=== PATIENT | female | born 1995 | race Caucasian/White ===

== ENCOUNTER 2017-08-15 23:59 | Observation (INO) ==
[2017-08-16 01:11] LABS: Bilirubin,Urine Negative (Negative); Blood,Urine Negative (Negative); Clarity,Urine Cloudy (Clear); Color,Urine Yellow (Yellow); Glucose,Urine (UA) Normal (Normal); Ketones,Urine Negative (Negative); Leukocyte Esterase,Urine Moderate (Negative); Nitrite,Urine Negative (Negative); Protein,Urine Negative (Neg-Trace); Specific Gravity,Urine 1.012 (1.010-1.025); Urobilinogen,Urine Normal (Normal)
[2017-08-16] MEDS ORDERED: Lidocaine -MPF 1% 2 ML VIAL ONE (01:11)
[2017-08-16 01:15] LABS: Hyaline Casts,Urine None Seen per lpf (None-Few); RBC,Urine 0-3 per hpf (0-3); Squamous Epithelial Cell,Urine Many per lpf (None-Few)
[2017-08-16 01:17] LABS: Amphetamine Screen,Urine Negative ng/mL (Cutoff=1000); Barbiturate Screen,Urine Negative ng/mL (Cutoff=200); Benzodiazepines Screen,Urine Negative ng/mL (Cutoff=200); Cannabinoid Screen,Urine Negative ng/mL (Cutoff = 50); Cocaine Screen,Urine Negative ng/mL (Cutoff= 300); Opiate Screen,Urine Negative ng/mL (Cutoff=300); Phencyclidine Screen,Urine Negative ng/mL (Cutoff=25)
[2017-08-16 01:27] LABS: Bacteria,Urine Moderate per hpf (None-Few)
--- NOTE | 2017-08-16 02:32 | OB/GYN Progress Note ---
Date of Encounter: 08/16/17 Time of Encounter: 02:19 - Assessment and Plan (1) Elevated blood pressure affecting in third trimester, antepartum Current Visit: Yes Status: Acute Bp on admission 131/101, then 142/99 currently 133/89. [facility] labs obtained. Discussed with Dr. Arline lawson to discharge to home, but schedule an appointment for Sunday. Message sent to chief crew scheduler in office to schedule patient for NST and PN appointment. Pt and mother state they are unsure if they will be able to make appoinement. RN will send email to [place], to call patient and discuss gas vouchers. (2) Abdominal pain affecting , antepartum Current Visit: Yes Status: Acute Pt rare contractions asked if she felt the contraction when one was occurring and stated she did not feel it. Cervix remained 60/-3 on serial exams. Discharged to home with labor and when to return precautions Pt and mother verbalize understanding Subjective - Subjective Interval history: 34+0 weeks presents to triage with abdominal pain and pelvic pressure that started at 2130 last night. Pt also complaints of right sided abdominal pain and skin sensitivity. Reports good movement, denies vaginal bleeding or leaking of fluid. Denies headache, visual changes, dysuria. Antepartum ROS: movement normal, other (adominal pain ), no loss of fluid , no vaginal bleeding, no contractions Objective - Vital Signs Vital Signs: Intake and Output 08/15/17 08/15/17 08/16/17 15:59 23:59 07:59 Other: Weight 84.2 kg Patient Weight 08/16/17 23:59 Weight 84.2 kg - Exam FHR: auscultation normal Auscultation: bilateral: normal Abdomen: Present: normal appearance, soft, gravid Cervical dilation: - Labs Labs: Abnormal lab results Urine Clarity Cloudy (Clear) A 08/16/17 00:30 Ur Leukocyte Esterase Moderate (Negative) H 08/16/17 00:30 Urine Microscopic WBC 3-5 per hpf (0-3) H 08/16/17 00:30 Ur Squamous Epith Cells Many per lpf (None-Few) H 08/16/17 00:30 Urine Bacteria Moderate per hpf (None-Few) H 08/16/17 00:30 Ur Culture Indicated? YES (NO) A 08/16/17 00:30
[2017-08-16 02:36] LABS: Basophils % 0.2 %; Eosinophils # 0.1 K/mcL (0.0-0.6); Eosinophils % 0.6 %; Hematocrit 31.5 % (35.3-44.9); Hemoglobin 10.5 g/dL (11.5-15.4); Immature Granulocytes % 0.5 % (0-4); Immature Platelets 3.5 % (1.1-6.1); Lymphocytes # 2.1 K/mcL (0.6-4.6); Mean Corpuscular HGB Conc 33.3 g/dL (31.6-35.5); Mean Corpuscular Hemoglobin 30.4 pg (28.0-33.3); Mean Corpuscular Volume 91.3 fL (83.0-100.0); Monocytes # 0.7 K/mcL (0.0-1.3); Monocytes % 6.1 %; Neutrophils # 9.3 K/mcL (1.6-8.9); Platelet Count 256 K/mcL (140-400); Red Blood Count 3.45 M/mcL (3.82-4.97); Red Cell Distribution Width 13.6 % (11.5-14.5); Segmented Neutrophils % 75.6 %
[2017-08-16 02:50] LABS: Alanine Aminotransferase 6 Units/L (0-55); Aspartate Amino Transferase 9 Units/L (5-34); BUN/Creatinine Ratio 12 (6-26); Blood Urea Nitrogen 7 mg/dL (7-20); Lactate Dehydrogenase 126 Units/L (159-327); Uric Acid 4.2 mg/dL (2.6-6.0); eGFR For African Americans > 60 (> 60); eGFR For Non-African Americans > 60 (> 60)
== END 2017-08-16 03:49 | disposition home or self-care (01) ==
LOC: 1NENULAB
PROVIDERS: ADMIT Advanced Practice Midwife; ATTEND Advanced Practice Midwife

== ENCOUNTER 2017-08-27 23:12 | Inpatient (IN) ==
[2017-08-27 23:48] LABS: Bilirubin,Urine Negative (Negative); Blood,Urine Large (Negative); Clarity,Urine Cloudy (Clear); Color,Urine Yellow (Yellow); Glucose,Urine (UA) Normal (Normal); Ketones,Urine >=160 mg/dL (Negative); Leukocyte Esterase,Urine Large (Negative); Nitrite,Urine Negative (Negative); PH,Urine 6.5 pH Units (5.0-8.0); Protein,Urine Trace mg/dL (Neg-Trace); Specific Gravity,Urine 1.022 (1.010-1.025); Urobilinogen,Urine Normal (Normal)
[2017-08-27 23:52] LABS: Amphetamine Screen,Urine Negative ng/mL (Cutoff=1000); Bacteria,Urine Many per hpf (None-Few); Barbiturate Screen,Urine Negative ng/mL (Cutoff=200); Benzodiazepines Screen,Urine Negative ng/mL (Cutoff=200); Cannabinoid Screen,Urine Negative ng/mL (Cutoff = 50); Cocaine Screen,Urine Negative ng/mL (Cutoff= 300); Hyaline Casts,Urine None Seen per lpf (None-Few); Opiate Screen,Urine Negative ng/mL (Cutoff=300); Phencyclidine Screen,Urine Negative ng/mL (Cutoff=25); Squamous Epithelial Cell,Urine Many per lpf (None-Few); WBC,Urine TNTC per hpf (0-3)
--- NOTE | 2017-08-28 00:01 | OB/GYN Progress Note ---
Date of Encounter: 08/28/17 Time of Encounter: 23:50 - Assessment and Plan (1) 35 weeks gestation of Current Visit: Yes Status: Acute at 35 4/7 EGA Failed 1 hr OGTT, unable to obtain 3 hr OGTT (2) Abdominal pain affecting , antepartum Current Visit: No Status: Acute Reports intermittent, sharp lower abdominal pain No dysuria or CVA tenderness UA shows leuk esterase, ketones, blood - culture indicated Ancef 2g Q8H (3) labor in third trimester Current Visit: Yes Status: Acute Due to patient being late , steroids are not indicated Patient has been making slow cervical change overnight (currently /), but will not be admitted for labor untill 6 cm dilated or SROM. Pain is not well controlled, have given her nubain and fentanyl which have not touched patient's pain Ancef 200mg IV q8 hours for UTI, draw CBC. Consider IM morphine and phenergan. POC per consult with Dr Barker. Qualifiers: labor delivery status: without delivery Qualified Code(s): O60.03 - labor without delivery, third trimester Subjective - Subjective Principal diagnosis: Abdominal pain Interval history: Ms. Saavedra is a 22 year old female at 35 4/7 EGA presenting with concerns of lower abdominal pain and some blood on the toilet paper after urinating. Her abdominal pain began this morning around 6AM, and she describes it as intermittent and sharp. She states that nothing makes it better. Worse with movement. She denies dysuria, hematuria, loss of fluid, or vaginal discharge. No overt vaginal bleeding other than a small amount after she wipes. She reports movement. Admits to some nausea and some lower back pain. Denies fevers, chills, blurred vision, headaches, chest pain, dysnea, vomiting, change in bowels, or extremity edema. This has been complicated by a failed 1 hr OGTT, but no conformation of GDM on 3 hr OGTT. Antepartum ROS: new complaints, movement normal, no loss of fluid, no vaginal bleeding, no contractions Objective - Vital Signs Vital Signs: Intake and Output 08/27/17 08/27/17 08/27/17 07:59 15:59 23:59 Other: Weight 83.007 kg Patient Weight 08/27/17 23:59 Weight 83.007 kg - Exam FHR: category 1 FHR comments: Level Green: irregular Auscultation: bilateral: normal Abdomen: Present: normal appearance, soft, gravid, tenderness (suprapubic) Uterus: Present: normal, firm Cervical dilation: 1-2cm per RN Cervix effacement: 80 station: 0
[2017-08-28] MEDS ORDERED: *HR* Nalbuphine 20 MG/ML AMPUL IVP PRN (01:04)
[2017-08-28] MEDS ORDERED: Ringers Solution, Lactated 1,000 ML IVC ONE (01:04)
[2017-08-28] MEDS ORDERED: ceFAZolin 2,000 MG in Water for inj. (sterile) 20 ML IVP SCH (02:00)
[2017-08-28] MEDS: Ringers Solution, Lactated 1,000 ML IVC SCH ×3 (02:47→19:48)
[2017-08-28] MEDS ORDERED: *HR* FentaNYL (PF) 100 MCG/2 ML VIAL IVP ONE (04:43)
[2017-08-28] MEDS ORDERED: *HR* Morphine 2 MG/ML SYRINGE SQ ONE (07:13)
[2017-08-28] MEDS ORDERED: *HR* Promethazine 25 MG/ML VIAL IM ONE (07:13)
[2017-08-28] MEDS ORDERED: *HR* Morphine 10 MG/ML VIAL ONE (08:03)
[2017-08-28 09:29] LABS: Basophils % 0.2 %; Hematocrit 33.5 % (35.3-44.9); Hemoglobin 10.9 g/dL (11.5-15.4); Immature Granulocytes % 0.9 % (0-4); Lymphocytes # 0.9 K/mcL (0.6-4.6); Lymphocytes % 4.1 %; Mean Corpuscular HGB Conc 32.5 g/dL (31.6-35.5); Mean Corpuscular Hemoglobin 29.3 pg (28.0-33.3); Mean Corpuscular Volume 90.1 fL (83.0-100.0); Mean Platelet Volume 10.1 fL (9.4-12.4); Monocytes # 1.1 K/mcL (0.0-1.3); Monocytes % 4.6 %; Neutrophils # 20.6 K/mcL (1.6-8.9); Platelet Count 192 K/mcL (140-400); Red Blood Count 3.72 M/mcL (3.82-4.97); Red Cell Distribution Width 14.1 % (11.5-14.5); Segmented Neutrophils % 90.2 %
[2017-08-28 09:39] LABS: Basophils # 0.1 K/mcL (0.0-0.2)
[2017-08-28] MEDS ORDERED: Penicillin G Potassium 5,000,000 UNIT in D5% in Water 100 ML IVPB ONE (10:47)
--- NOTE | 2017-08-28 10:56 | OB/GYN History & Physical ---
Date of Encounter: 08/28/17 Time of Encounter: 10:48 Assessment and Plan (1) 35 weeks gestation of Current visit: Yes Status: Acute admitted for labor observation Admit for delivery at 6cm or SROM GBS Unknown- will start PCN prophylaxis History of Present Illness Chief complaint: vaginal bleeding and contractions HPI: Ms. Saavedra is a 22 year old female at 35w5d presents to labor and delivery yesterday with complaints of vaginal bleeding and cramping. Patient was 1-2 cm on admission and progressed slowly to -. It was also discovered patient had a UTI and was treated with Ancef 2 grams Q8 hours. Patient reports pain . Patient reexamined at this time. Large amount of bloody show noted. SVE . We will continue to monitor patient at this time. Discussed POC with patient. Patient denies any questions or concerns. Ancef to be stopped at this time and will start GBS prophylaxis to be started due to unknown GBS status. Blood type: O+, Rubella: Immune, Hep B: Nonreactive, Varicella: Equivocal, GBS: Unknown. Past Med Surg Social Fam HX - Past Medical History Source: patient Medical history: asthma Psychiatric history: depression - Past Surgical History Surgical History: no surgical history - Social History Smoking Status: Never smoker Smokeless Tobacco Status: No Alcohol use: none Drug use: none Activity Level: Independent ambulation Recent Out of Country Travel Within the Last 8 Weeks: No Exposure or Possible Exposure to Illness During Travel: No - Family History Mother Living Status: Still Living Hx Family Cardiac Disorders: Yes (HTN, high cholesterol) Hx Family Respiratory Disorders: No Hx Family Cancer: No Hx Family GI Disorders: No Hx Family Genitourinary Disorders: No Hx Family Endocrine Disorder: No Hx Family Musculoskeletal Disorders: No Hx Family Neuromuscular Disorders: No Hx Family Neurologic Disorders: No Hx Family HEENT Disorders: No Hx Family Autoimmune Disorders: No Hx Family Reproductive Disorders: No Hx Family Psychosocial Disorders: No Hx Family Medical Disorders: No Obstetrical History - Pregnancies : 1 Para: 0 Term: 0 : 0 Ab's: 0 Livin Medications and Allergies No Known Home Drugs 08/27/17 [History] 3 Allergy/AdvReac Type Severity Reaction Status Date / Time naproxen AdvReac Headache Verified 08/16/17 01:17 Review of System OB - Constitutional Constitutional ROS IM: no fever(s), no headache(s) - Cardiovascular Cardiovascular: no chest pain, no palpitations, no syncope - Respiratory Respiratory: no cough, no dyspnea - Gastrointestinal Gastrointestinal: abdominal pain, cramping, no constipation, no heartburn, no nausea, no vomiting - Genitourinary Genitourinary: abnormal vaginal bleeding (per HPI), dysuria, flank pain, vaginal discharge, no urinary frequency, no urinary incontinence, no vaginal odor, no vaginal pruritis Exam - Constitutional Constitutional: well developed, well nourished, no acute distress, average body habitus - HEENT HEENT: Normocephaly, Mucus Membranes Moist - Neck Neck exam: full ROM, supple - Lungs Respiratory exam: CTAB - Cardiovascular Cardiovascular exam: RRR, +S1, +S2 - Abdomen Abdomen: Present: bowel sounds normal, gravid, non tender - Extremities Extremities exam: full ROM, normal inspection Deep Tendon Reflex Grade: 2+ Normal - Cervix Dilation: 5 Effacement: 90 Station: -1 - Uterus Uterus exam: Present: normal size, normal contour - Anus/Rectum Anus/Rectum: Present: normal perianal skin - Comments Comments: FHR 135 bpm moderate amount variability +15x15 accels no decels noted. No contractions noted at this time. Cat. 1 Tracing. Results Result Diagrams: 08/28/17 09:15 Abnormal lab results WBC 22.8 K/mcL (4.3-11.1) H 08/28/17 09:15 RBC 3.72 M/mcL (3.82-4.97) L 08/28/17 09:15 Hgb 10.9 g/dL (11.5-15.4) L 08/28/17 09:15 Hct 33.5 % (35.3-44.9) L 08/28/17 09:15 Neutrophils # 20.6 K/mcL (1.6-8.9) H 08/28/17 09:15 Urine Clarity Cloudy (Clear) A 08/27/17 23:38 Urine Ketones >=160 mg/dL (Negative) H 08/27/17 23:38 Urine Blood Large (Negative) H 08/27/17 23:38 Ur Leukocyte Esterase Large (Negative) H 08/27/17 23:38 Urine Microscopic RBC 5-15 per hpf (0-3) H 08/27/17 23:38 Urine Microscopic WBC TNTC per hpf (0-3) H 08/27/17 23:38 Ur Squamous Epith Cells Many per lpf (None-Few) H 08/27/17 23:38 Urine Bacteria Many per hpf (None-Few) H 08/27/17 23:38 Ur Culture Indicated? YES (NO) A 08/27/17 23:38 All other labs normal. - VTE Reasons for not Prescribing Prophylaxis: Treatment not Indicated - Low risk for VTE
[2017-08-28] MEDS ORDERED: Ondansetron 4 MG/2 ML VIAL IVP PRN (11:55)
[2017-08-28] MEDS ORDERED: Naloxone 0.4 MG/ML INJ IVP PRN (11:55)
[2017-08-28] MEDS ORDERED: Famotidine 20 MG/2 ML VIAL IVP PRN (11:55)
[2017-08-28] MEDS ORDERED: Ringers Solution, Lactated 1,000 ML IVC SCH (12:00)
[2017-08-28] MEDS ORDERED: Epidural Premix (fent/bupiv) 110 ML EP ONE ×2 (12:03→18:17)
[2017-08-28] MEDS ORDERED: *HR* FentaNYL (PF) 100 MCG/2 ML VIAL ONE ×3 (12:03→22:02)
[2017-08-28] MEDS ORDERED: *HR* Ropivacaine/PF 0.2% 10 ML AMPUL ONE ×2 (12:03→19:54)
--- NOTE | 2017-08-28 12:14 | Anesthesia Evaluation PreOp ---
Date of Encounter: 08/28/17 Time of Encounter: 12:11 - Past History Planned Operation: reema Cardiac History: Denies any Significant Hx Pulmonary History: Asthma DENTURE CONTOUR WIRE SPECIALIST History: Denies Any Significant HX Other Medical History: Denies Any Significant HX, Other (depression) Anesthesia History: No Prior Anesthetic Complications : Yes Test: Positive Alcohol Use: none Drug use: none Medications and Allergies No Known Home Drugs 08/27/17 [History] 3 Allergy/AdvReac Type Severity Reaction Status Date / Time naproxen AdvReac Headache Verified 08/16/17 01:17 - Meds/Allergy Pre-op Review Medications Reviewed: Yes Allergies Reviewed: Yes Beta Blockers on Current Med List: No Anesthesia Results - Labs 08/28/17 09:15 Anesthesia Exam Height: 5'3" Weight: 183 NPO (# of Hours): 5 Pain Scale: 8 Pain Scale Used: Numeric (1 - 10) - HEENT Pupil (Motor): Pupils equal Mallampati: II Teeth: Poor dentition Oral Opening: Greater than 3 - DENTURE CONTOUR WIRE SPECIALIST LOC: Oriented DENTURE CONTOUR WIRE SPECIALIST Motor: Normal RUE, Normal LUE, Normal RLE, Normal LLE, Normal Face DENTURE CONTOUR WIRE SPECIALIST Sensory: Normal: RUE, LUE, RLE, LLE, Face - Cardiac Rhythm: Regular Murmur: None - Pulmonary Breath Sounds: bilateral Clear Respiratory Effort: Symmetrical Anesthesia Assess/Plan ASA Score: 2 Modified Andrea Scale for Level of Consciousness: Cooperative, oriented, and tranquil Anesthetic Plan: Regional Autologous Blood: No Monitoring Plan: Standard Monitors Recovery Plan: Other (risks discussed, questions answered, consented)
--- NOTE | 2017-08-28 12:41 | Anesthesia Procedures ---
Date of Encounter: 08/28/17 Time of Encounter: 12:15 Procedures: Anesthesia - Epidural/Spinal Patient ID/Chart reviewed: Yes Patient examined: Yes OB Eval: Gestational age: 39 weeks OB Eval: : 1 OB Eval: Hx Para: 0 OB Eval: Dilated at (cm): 4 OB Eval: Contractions: Non-stressed pattern Consent Obtained: Yes Supplemental Oxygen: None/Room Air Site Prep: Aseptic Technique, Sterile prep and drape, Povidone-Iodine 1% Patient position: upright Local Anesthetic: Lidocaine 1% Amount of Local Anesthetic used: 5 Touhy Needle Gauge: 18 Touhy Needle Depth (cm): 4 Catheter Depth at Skin (cm): 6 Loading Dose: Fentanyl (mcg): 100 Loading Dose: Other: Ropivacaine 0.25% Loading Dose Administered: Thru Touhy Needle Infusion Med: 0.125% Bupivacaine w/ 2 mcg/ml Fentanyl Infusion Rate (mls/hr): [address]: Tegaderm Interspace Used: L4-L5 Loss of Resistance (RAMAN): Yes Blood: No CSF: No Paresthesia: No
[2017-08-28] MEDS: Penicillin G Potassium 2,500,000 UNIT in D5% in Water 100 ML IVPB SCH ×2 (16:01→19:51)
[2017-08-28] MEDS ORDERED: Acetaminophen 325 MG TABLET PO PRN (18:54)
--- NOTE | 2017-08-28 20:01 | Anesthesia Progress Note ---
Date of Encounter: 08/28/17 Time of Encounter: 20:00 Anesthesia Note - Note Note: 08/28/17 20:00 bolus for break through pain ropivicaine 0.2% 5cc Fentanyl 100 mcg
[2017-08-28] MEDS ORDERED: Metoclopramide 10 MG/2 ML VIAL IVP PRN (21:46)
[2017-08-28] MEDS ORDERED: *HR* Propofol 200 MG/20 ML VIAL IVP ONE (21:57)
[2017-08-28] MEDS ORDERED: *HR* Midazolam HCl 2 MG/2 ML VIAL ONE (22:03)
[2017-08-28] MEDS ORDERED: Oxytocin 20 units/ LR 1000 mL 40 UNIT/2,000 ML BAG IVC ONE (22:06)
[2017-08-28] MEDS ORDERED: *HR* Oxytocin 10 UNIT/ML VIAL IM ONE (22:16)
[2017-08-28] MEDS ORDERED: Chloroprocaine/PF 20 ML VIAL INFILT ONE (22:16)
[2017-08-28] MEDS ORDERED: Lidocaine -MPF 2% 5 ML VIAL ONE (22:18)
[2017-08-28] MEDS ORDERED: *HR* Morphine Sulfate/PF 5 MG/10 ML AMPUL ONE (22:18)
[2017-08-28] MEDS ORDERED: *HR* HYDROmorphone (PF) 1 MG/ML SYRINGE IVP PRN (22:24)
[2017-08-28] MEDS ORDERED: Ondansetron 4 MG/2 ML VIAL IVP ONE (22:24)
--- NOTE | 2017-08-28 23:49 | OB/GYN Procedure Note ---
Section - Date of procedure: 08/28/17 Preop diagnosis: category 3 FHT tracing Post-op diagnosis: same Procedure: section, primary low transverse Surgeon: Edgar Ignacio Estimated blood loss (cc): 300 Anesthesiologist: Emerson Tamayo Automatic Log Cut Off Sawyer: David Valderrama Anesthesia Type: Epidural section complications: none Disposition: PACU Specimens: Placenta - (s) A Infant Delivery Date: 08/28/17 Delivery Time: 21:59 Presentation: vertex Position: OP Gender: Male Gram Weight: 2.17 kg at 1 minute: 8 at 5 minutes: 9 Shoulder Dystocia: not encountered Placenta: spontaneous Cord: 3 umbilical vessels - Narrative Narrative: Patient's 22-year-old female who was 9 cm dilated with begin having deep variable decelerations. She was repositioned and given oxygen IV fluid bolus but these continued therefore decision was made to proceed with primary section. She was aware of operative risks and signed appropriate consent. Description procedure: Patient was taken operating room where epidural was dosed and she was prepped and draped in usual sterile fashion. Scalpel was used to make Pfannenstiel skin incision was sharply taken down the rectus fascia. Rectus fascia was incised midline fascial incision was extended bilaterally. Rectus muscles were divided and peritoneum was entered bluntly. Bladder blade was placed and bladder flap was developed and lower uterine segment. Scalpel was used to make a low transverse uterine incision and was delivered. Initially was vertex OPD however did convert to transverse and eventually was delivered from breech presentation without difficulty. Shoulders were swept inward and head was kept flexed during reach delivered. Placenta was delivered manually without difficulty uterine cavity was massaged free of all residual tissue. Uterus closed 0 Vicryl running lock stitch there was some oozing at the right aspect of incision which was controlled with several [id number] stitches. Landy was then applied. Irrigation was performed fascia was closed 0 Vicryl in running manner. Closed the fascia again irrigation was performed hemostasis was ensured skin edges reapproximated with 4-0 Vicryl. Steri-Strips are applied all sponge and instruments counts are correct patient taken recovery in good condition.
[2017-08-29] MEDS ORDERED: Simethicone 80 MG TAB.CHEW PO PRN (01:08)
[2017-08-29] MEDS ORDERED: Ondansetron 4 MG/2 ML VIAL IVP PRN (01:08)
[2017-08-29] MEDS ORDERED: Sennosides 8.6 MG TABLET PO PRN (01:08)
[2017-08-29] MEDS ORDERED: Metoclopramide 10 MG/2 ML VIAL IVP PRN (01:08)
[2017-08-29] MEDS ORDERED: Rho Immune Globulin 1,500 UNIT SYRINGE IM ONE (01:08)
[2017-08-29] MEDS ORDERED: Oxytocin 20 units/ LR 1000 mL 20 UNIT/1,000 ML BAG IVC SCH (01:08)
[2017-08-29] MEDS: Ibuprofen 600 MG TABLET PO PRN ×4 (03:37→22:59)
[2017-08-29 07:05] LABS: Basophils % 0.1 %; Hematocrit 27.5 % (35.3-44.9); Immature Granulocytes % 1.1 % (0-4); Lymphocytes # 1.6 K/mcL (0.6-4.6); Lymphocytes % 7.5 %; Mean Corpuscular HGB Conc 32.7 g/dL (31.6-35.5); Mean Corpuscular Hemoglobin 29.8 pg (28.0-33.3); Mean Corpuscular Volume 91.1 fL (83.0-100.0); Mean Platelet Volume 10.4 fL (9.4-12.4); Monocytes % 4.5 %; Neutrophils # 18.5 K/mcL (1.6-8.9); Platelet Count 197 K/mcL (140-400); Red Blood Count 3.02 M/mcL (3.82-4.97); Red Cell Distribution Width 14.6 % (11.5-14.5); Segmented Neutrophils % 86.8 %
--- NOTE | 2017-08-29 14:06 | OB/GYN Progress Note ---
Date of Encounter: 08/29/17 Time of Encounter: 14:04 - Assessment and Plan (1) S/P section Current Visit: Yes Status: Acute Pt meeting POD#1 milestones. Anticipate discharge home POD#2-3. (2) Elevated blood pressure affecting in third trimester, antepartum Current Visit: No Status: Acute BP well controlled Subjective - Subjective Principal diagnosis: at 35 weeks gestation Interval history: Patient is a 22F presenting at 35+5 c/o vaginal bleeding and cramping. Patient received an epidural. Taken to secondary to category 3 FHT and delivered a viable male without complications. Patient denies any concerns at this time. She has been able to ambulate. Still has a newman in place, no flatulence. Patient states her pain is very mild, no incision site drainage. Patient states she has had minimal vaginal bleeding. Bottle feeding. Patient reports: appetite normal, pain well controlled, ambulating normally, no nauseated [place]: doing well, bottle feeding Objective - Vital Signs Latest vital signs: Vital Signs Temp Pulse Resp BP Pulse Ox 08/29/17 08:04 98.1 F 106 16 109/73 08/29/17 04:20 99.0 F 103 16 110/77 99 08/29/17 03:08 99.4 F 109 16 116/81 99 08/29/17 02:15 99.3 F 104 18 133/86 96 08/29/17 01:45 98.4 F 102 14 122/82 97 08/29/17 01:15 98.9 F 99 14 124/72 98 08/29/17 01:00 99.6 F 97 16 128/74 97 08/29/17 00:45 98.7 F 99 16 126/80 98 08/29/17 00:30 98.9 F 106 16 124/79 97 08/29/17 00:15 98.4 F 108 14 123/79 99 08/29/17 00:01 98.2 F 113 14 127/80 97 08/28/17 23:45 98.4 F 115 16 110/64 100 08/28/17 23:30 98.4 F 112 16 99/66 100 08/28/17 23:15 98.6 F 104 14 118/64 99 Intake and Output 08/28/17 08/29/17 08/29/17 23:59 07:59 15:59 Intake Total 1100 / 1100 120 / 120 300 / 300 Output Total 600 / 600 Balance 1100 / 1100 -480 / -480 300 / 300 Intake: IV Fluids 1100 / 1100 Lactated Ringers 1,000 ML @ 125 1000 / 1000 mls/hr IVC .Q8H SHASHI Rx#: [id number] Pfizerpen 2,500,000 UNIT In 100 / 100 Dextrose 5% 100 ML @ 200 mls/hr IVPB Q4HR SHASHI Rx#:[id number] Oral 120 / 120 300 / 300 Output: Catheter 600 / 600 Other: Weight 80.2 kg Patient Weight 08/29/17 23:59 Weight 80.2 kg - Exam Lungs: bilateral: normal Chest: Normal S1, Normal S2 Extremities: Present: normal. Absent: tenderness, edema Abdomen: Present: normal appearance, soft, gravid Incision: Present: normal, dry, intact Uterus: Present: normal, firm. Absent: tenderness Comments: Patient reports a good mood, denies depression. - Labs Labs: Laboratory Results - last 24 hr 08/28/17 08/29/17 15:19 06:29 WBC 21.3 H RBC 3.02 L Hgb 9.0 L D Hct 27.5 L MCV 91.1 MCH 29.8 MCHC 32.7 RDW 14.6 H Plt Count 197 MPV 10.4 Immature Gran % 1.1 Seg Neutrophils % 86.8 Lymphocytes % 7.5 Monocytes % 4.5 Eosinophils % 0.0 Basophils % 0.1 Neutrophils # 18.5 H Lymphocytes # 1.6 Monocytes # 1.0 Eosinophils # 0.0 Basophils # 0.0 POC Glucose 121 H
[2017-08-29] MEDS: *HR* OxyCODONE/APAP 5/325 TABLET PO PRN (23:00)
[2017-08-30] MEDS: *HR* OxyCODONE/APAP 5/325 TABLET PO PRN ×2 (06:34→18:47)
[2017-08-30] MEDS: Ibuprofen 600 MG TABLET PO PRN ×2 (06:34→18:48)
--- NOTE | 2017-08-30 08:26 | Discharge Summary ---
Date of Encounter: 08/30/17 Time of Encounter: 08:24 - Discharge Diagnosis (1) 35 weeks gestation of Priority: Primary Status: Acute (2) anemia Priority: Secondary Status: Acute Comments: Will be discharged home with iron supplementation. Denies syncope, light- headedness. (3) S/P section Priority: Primary Status: Acute Comments: delivered at 35 5/7 EGA via POD#2. Meeting all post-op milestones. Pain controlled. tolerating po diet and passing flatus. Desires discharge. (4) Abdominal pain affecting , antepartum Priority: Secondary Status: Acute - Discharge Medications Prescriptions: OxyCODONE/APAP 5/325 [Percocet 5/325 MG] 1 each PO Q4HR PRN #20 tablet PRN Reason: Moderate pain 4-6 Ibuprofen [Motrin] 600 mg PO Q6HR PRN #120 tablet PRN Reason: Cramping Docusate [Colace] 100 mg PO BID PRN #60 capsule PRN Reason: Constipation Ferrous Sulfate 325 mg PO DAILY #60 tablet Home Medications: Docusate [Colace] 100 mg PO BID PRN #60 capsule 08/30/17 [Rx] Ferrous Sulfate 325 mg PO DAILY #60 tablet 08/30/17 [Rx] Ibuprofen [Motrin] 600 mg PO Q6HR PRN #120 tablet 08/30/17 [Rx] OxyCODONE/APAP 5/325 [Percocet 5/325 MG] 1 each PO Q4HR PRN #20 tablet 08/30/17 [Rx] Vit/FA 1 each PO DAILY tablet 08/30/17 [Rx] Allergies/Adverse Reactions: 3 Allergy/AdvReac Type Severity Reaction Status Date / Time naproxen AdvReac Headache Verified 08/16/17 01:17 Data Procedures and tests throughout hospitalization: Laboratory Tests 08/27/17 08/27/17 08/28/17 23:38 23:38 09:15 WBC 22.8 H RBC 3.72 L Hgb 10.9 L Hct 33.5 L MCV 90.1 MCH 29.3 MCHC 32.5 RDW 14.1 Plt Count 192 MPV 10.1 Immature Gran % 0.9 Seg Neutrophils % 90.2 Lymphocytes % 4.1 Monocytes % 4.6 Eosinophils % 0.0 Basophils % 0.2 Neutrophils # 20.6 H Lymphocytes # 0.9 Monocytes # 1.1 Eosinophils # 0.0 Basophils # 0.1 POC Glucose Urine Color Yellow Urine Clarity Cloudy A Urine pH 6.5 Ur Specific [place] 1.022 Urine Protein Trace Urine Glucose (UA) Normal Urine Ketones >=160 H Urine Blood Large H Urine Nitrite Negative Urine Bilirubin Negative Urine Urobilinogen Normal Ur Leukocyte Esterase Large H Urine Microscopic RBC 5-15 H Urine Microscopic WBC TNTC H Ur Squamous Epith Cells Many H Urine Bacteria Many H Hyaline Casts None Seen Ur Culture Indicated? YES A Urine Opiates Screen Negative Ur Barbiturates Screen Negative Ur Phencyclidine Scrn Negative Ur Amphetamines Screen Negative U Benzodiazepines Scrn Negative Urine Cocaine Screen Negative U Marijuana (THC) Screen Negative 08/28/17 08/29/17 15:19 06:29 WBC 21.3 H RBC 3.02 L Hgb 9.0 L D Hct 27.5 L MCV 91.1 MCH 29.8 MCHC 32.7 RDW 14.6 H Plt Count 197 MPV 10.4 Immature Gran % 1.1 Seg Neutrophils % 86.8 Lymphocytes % 7.5 Monocytes % 4.5 Eosinophils % 0.0 Basophils % 0.1 Neutrophils # 18.5 H Lymphocytes # 1.6 Monocytes # 1.0 Eosinophils # 0.0 Basophils # 0.0 POC Glucose 121 H Urine Color Urine Clarity Urine pH Ur Specific [place] Urine Protein Urine Glucose (UA) Urine Ketones Urine Blood Urine Nitrite Urine Bilirubin Urine Urobilinogen Ur Leukocyte Esterase Urine Microscopic RBC Urine Microscopic WBC Ur Squamous Epith Cells Urine Bacteria Hyaline Casts Ur Culture Indicated? Urine Opiates Screen Ur Barbiturates Screen Ur Phencyclidine Scrn Ur Amphetamines Screen U Benzodiazepines Scrn Urine Cocaine Screen U Marijuana (THC) Screen Date of admission: 08/27/17 23:12 Primary care physician: PCP NONE Consults: 08/29/17 01:08 Consult to Residential Living Assistant (W&C) [CONS] Routine Reason For Exam: Reason for SW Consult: resources, education, questionable comprehension of education?, needs carseat Discharging clinician: Luciano Schneider Anticipated date of discharge: 08/30/17 - Patient Status Disposition: Home, Self-Care Condition: Good Functional capacity at discharge: independent ambulation Overall status at discharge: patient is progressing back to baseline - Discharge Instructions Follow Up With: NONE,PCP [Primary Care Provider] - Additional Instructions: Take your medications as prescribed - Take ferrous sulfate 325mg twice daily Increase activity as tolerated Feed your baby every 2-3 hours Follow-up with OB for incision check in 2 week Follow-up with OB for check-up in 6 weeks - Diet and Activity Activity: increase activity as tolerated Diet: advance to your usual diet Hospital Course Reason for admission: vaginal bleeding Delivery: section Episiotomy: none Laceration: none Other procedures: none complications: none Discharge diagnosis: delivery [place] baby: male Hospital course: - Date of procedure: 08/28/17 Preop diagnosis: category 3 FHT tracing Post-op diagnosis: same Procedure: section, primary low transverse Surgeon: Edgar Ignacio Estimated blood loss (cc): 300 Anesthesiologist: Emerson Tamayo Rail Signal Mechanic: David Valderrama Anesthesia Type: Epidural section complications: none Disposition: PACU Specimens: Placenta - Infant (s) Infant A Infant Delivery Date: 08/28/17 Delivery Time: 21:59 Presentation: vertex Position: OP Gender: Male Gram Weight: 2.17 kg at 1 minute: 8 at 5 minutes: 9 Shoulder Dystocia: not encountered Placenta: spontaneous Cord: 3 umbilical vessels - Narrative Narrative: Patient's 22-year-old female who was 9 cm dilated with begin having deep variable decelerations. She was repositioned and given oxygen IV fluid bolus but these continued therefore decision was made to proceed with primary section. She was aware of operative risks and signed appropriate consent. Meeting all postartum milestones and appropriate for discharge. Time Attestation: Total time spent providing and/or coordinating discharge services: Time Spent: Less than 30 minutes - VTE Reasons for not Prescribing Prophylaxis: Treatment not Indicated - Low risk for VTE Documentation of Mechanical Device: Intermittent pneumatic compression device Exam - Constitutional Vitals: Temp Pulse Resp BP Pulse Ox 98.4 F 108 16 108/65 99 08/29/17 20:40 08/29/17 20:40 08/29/17 20:40 08/29/17 20:40 08/29/17 20:40 General appearance IM: A&O X 3, no acute distress - Respiratory Respiratory exam: Present: CTAB - Cardiovascular Cardiovascular exam IM: Present: +S1, +S2, tachycardia - GI/Abdominal GI/Abdominal exam IM: normal bowel sounds, tenderness (appropriately tender near incision site) Incision: normal, dry - Uterine Tone: Firm Uterus Position: 2 Fingers Below Umbilicus - Extremities Exam Extremities exam IM: Present: pedal edema (mild bilaterally) - Neurological Exam Neurological exam: alert, no focal deficits - Psychiatric Additional comments: Reports mood is "fine"
[2017-08-30] MEDS: Prenatal Vit/FA 1 EACH TABLET PO SCH (08:56)
[2017-08-31] MEDS: *HR* OxyCODONE/APAP 5/325 TABLET PO PRN (08:17)
[2017-08-31] MEDS: Prenatal Vit/FA 1 EACH TABLET PO SCH (08:18)
[2017-08-31 08:29] VITALS: BP 115/81
--- NOTE | 2017-08-31 09:47 | Discharge Summary ---
Date of Encounter: 08/31/17 Time of Encounter: 09:44 - Discharge Diagnosis (1) S/P section Priority: Primary Status: Acute Comments: Continue routine care discharge home today follow up in 1 week for staple removal. - Discharge Medications Prescriptions: OxyCODONE/APAP 5/325 [Percocet 5/325 MG] 1 each PO Q4HR PRN #20 tablet PRN Reason: Moderate pain 4-6 Ibuprofen [Motrin] 600 mg PO Q6HR PRN #120 tablet PRN Reason: Cramping Docusate [Colace] 100 mg PO BID PRN #60 capsule PRN Reason: Constipation Ferrous Sulfate 325 mg PO DAILY #60 tablet Home Medications: Docusate [Colace] 100 mg PO BID PRN #60 capsule 08/30/17 [Rx] Ferrous Sulfate 325 mg PO DAILY #60 tablet 08/30/17 [Rx] Ibuprofen [Motrin] 600 mg PO Q6HR PRN #120 tablet 08/30/17 [Rx] OxyCODONE/APAP 5/325 [Percocet 5/325 MG] 1 each PO Q4HR PRN #20 tablet 08/30/17 [Rx] Vit/FA 1 each PO DAILY tablet 08/30/17 [Rx] Allergies/Adverse Reactions: 3 Allergy/AdvReac Type Severity Reaction Status Date / Time naproxen AdvReac Headache Verified 08/16/17 01:17 Data Procedures and tests throughout hospitalization: Laboratory Tests 08/27/17 08/27/17 08/28/17 23:38 23:38 09:15 WBC 22.8 H RBC 3.72 L Hgb 10.9 L Hct 33.5 L MCV 90.1 MCH 29.3 MCHC 32.5 RDW 14.1 Plt Count 192 MPV 10.1 Immature Gran % 0.9 Seg Neutrophils % 90.2 Lymphocytes % 4.1 Monocytes % 4.6 Eosinophils % 0.0 Basophils % 0.2 Neutrophils # 20.6 H Lymphocytes # 0.9 Monocytes # 1.1 Eosinophils # 0.0 Basophils # 0.1 POC Glucose Urine Color Yellow Urine Clarity Cloudy A Urine pH 6.5 Ur Specific [place] 1.022 Urine Protein Trace Urine Glucose (UA) Normal Urine Ketones >=160 H Urine Blood Large H Urine Nitrite Negative Urine Bilirubin Negative Urine Urobilinogen Normal Ur Leukocyte Esterase Large H Urine Microscopic RBC 5-15 H Urine Microscopic WBC TNTC H Ur Squamous Epith Cells Many H Urine Bacteria Many H Hyaline Casts None Seen Ur Culture Indicated? YES A Urine Opiates Screen Negative Ur Barbiturates Screen Negative Ur Phencyclidine Scrn Negative Ur Amphetamines Screen Negative U Benzodiazepines Scrn Negative Urine Cocaine Screen Negative U Marijuana (THC) Screen Negative 08/28/17 08/29/17 15:19 06:29 WBC 21.3 H RBC 3.02 L Hgb 9.0 L D Hct 27.5 L MCV 91.1 MCH 29.8 MCHC 32.7 RDW 14.6 H Plt Count 197 MPV 10.4 Immature Gran % 1.1 Seg Neutrophils % 86.8 Lymphocytes % 7.5 Monocytes % 4.5 Eosinophils % 0.0 Basophils % 0.1 Neutrophils # 18.5 H Lymphocytes # 1.6 Monocytes # 1.0 Eosinophils # 0.0 Basophils # 0.0 POC Glucose 121 H Urine Color Urine Clarity Urine pH Ur Specific [place] Urine Protein Urine Glucose (UA) Urine Ketones Urine Blood Urine Nitrite Urine Bilirubin Urine Urobilinogen Ur Leukocyte Esterase Urine Microscopic RBC Urine Microscopic WBC Ur Squamous Epith Cells Urine Bacteria Hyaline Casts Ur Culture Indicated? Urine Opiates Screen Ur Barbiturates Screen Ur Phencyclidine Scrn Ur Amphetamines Screen U Benzodiazepines Scrn Urine Cocaine Screen U Marijuana (THC) Screen Date of admission: 08/27/17 23:12 Primary care physician: PCP DELPHINE Consults: 08/29/17 01:08 Consult to [employer] ([employer]) [CONS] Routine Reason For Exam: Reason for SW Consult: resources, education, questionable comprehension of education?, needs carseat Discharging clinician: Alejandra Cancino Anticipated date of discharge: 08/31/17 - Patient Status Disposition: Home, Self-Care Condition: Good - Discharge Instructions Follow Up With: NONE,PCP [Primary Care Provider] - Rosa Nunn MD [Partnered Physician] - Additional Instructions: Take your medications as prescribed - Take ferrous sulfate 325mg twice daily Increase activity as tolerated Feed your baby every 2-3 hours Follow-up with OB for incision check in 2 week Follow-up with OB for check-up in 6 weeks - Diet and Activity Activity: increase activity as tolerated Diet: regular diet Hospital Course Delivery: section Episiotomy: none Laceration: none Other procedures: none complications: none Discharge diagnosis: delivery baby: male (bottle feeding) Time Attestation: Total time spent providing and/or coordinating discharge services: Time Spent: Less than 30 minutes - VTE Reasons for not Prescribing Prophylaxis: Treatment not Indicated - Low risk for VTE Documentation of Mechanical Device: Intermittent pneumatic compression device Exam - Constitutional Vitals: Temp Pulse Resp BP Pulse Ox 97.7 F 105 20 115/81 96 08/31/17 07:35 08/31/17 08:23 08/31/17 07:35 08/31/17 07:35 08/31/17 07:35 General appearance IM: A&O X 3, no acute distress - GI/Abdominal Incision: normal, dry, intact, other (radha present) - Uterine Tone: Firm Uterus Position: 2 Fingers Below Umbilicus, Midline - Extremities Exam Extremities exam IM: Present: full ROM - Neurological Exam Neurological exam: alert, oriented X3, reflexes normal
== END 2017-08-31 13:47 | disposition home or self-care (01) | DRG 540 ==
LOC: 1NENULAB → OBSVTOIN 23:12 → 1NENUOBS 08-29 02:18
PROVIDERS: ADMIT Advanced Practice Midwife; ATTEND Advanced Practice Midwife

== ENCOUNTER 2019-09-30 15:05 | Observation (INO) ==
[2019-09-30] MEDS ORDERED: Betamethasone Acet/SodPhos 30 MG/5 ML VIAL IM SCH (15:30)
[2019-09-30 15:34] VITALS: BP 114/65
== END 2019-09-30 15:45 | disposition home or self-care (01) ==
LOC: 1NENULAB
PROVIDERS: ADMIT Registered Nurse; ATTEND Registered Nurse

== ENCOUNTER → 2019-10-04 18:55 | Observation (INO) ==
[2019-10-04 17:44] LABS: Amphetamine Screen,Urine Negative ng/mL (Cutoff=1000); Barbiturate Screen,Urine Negative ng/mL (Cutoff=200); Benzodiazepines Screen,Urine Negative ng/mL (Cutoff=200); Cannabinoid Screen,Urine Negative ng/mL (Cutoff = 50); Cocaine Screen,Urine Negative ng/mL (Cutoff= 300); Opiate Screen,Urine Negative ng/mL (Cutoff=300); Phencyclidine Screen,Urine Negative ng/mL (Cutoff=25)
== END | disposition home or self-care (01) ==
LOC: 1NENULAB
PROVIDERS: ADMIT Advanced Practice Midwife; ATTEND Advanced Practice Midwife

== ENCOUNTER 2019-11-19 04:51 | Inpatient (IN) ==
[2019-11-19] MEDS ORDERED: Famotidine 20 MG/2 ML VIAL IVP PRN (05:41)
[2019-11-19] MEDS ORDERED: Naloxone 0.4 MG/ML INJ IVP PRN (05:41)
[2019-11-19] MEDS ORDERED: Metoclopramide 10 MG/2 ML VIAL IVP PRN ×2 (05:41→11:21)
[2019-11-19] MEDS ORDERED: Ringers Solution, Lactated 1,000 ML IVC SCH (05:45)
[2019-11-19 06:41] LABS: Hematocrit 34.5 % (35.3-44.9); Hemoglobin 10.1 g/dL (11.5-15.4); Mean Corpuscular HGB Conc 29.3 g/dL (31.6-35.5); Mean Corpuscular Volume 81.9 fL (83.0-100.0); Mean Platelet Volume 10.3 fL (9.4-12.4); Platelet Count 306 K/mcL (140-400); Red Blood Count 4.21 M/mcL (3.82-4.97); Red Cell Distribution Width 22.9 % (11.5-14.5); Segmented Neutrophils % 74.8 %; White Blood Count 10.6 K/mcL (4.3-11.1)
[2019-11-19 06:42] LABS: Basophils % 0.4 %; Eosinophils # 0.1 K/mcL (0.0-0.6); Eosinophils % 0.9 %; Immature Granulocytes % 0.7 % (0-4); Lymphocytes # 1.8 K/mcL (0.6-4.6); Lymphocytes % 17.4 %; Monocytes # 0.6 K/mcL (0.0-1.3); Monocytes % 5.8 %; Neutrophils # 7.9 K/mcL (1.6-8.9)
[2019-11-19 06:48] LABS: Protein/Creatinine Ratio,Urine 0.18 mg/mg (0.00-0.20)
[2019-11-19] MEDS ORDERED: *HR* Oxytocin 10 UNIT/ML VIAL IM ONE (07:59)
[2019-11-19] MEDS ORDERED: Ringers Solution, Lactated 1,000 ML ONE (07:59)
[2019-11-19] MEDS ORDERED: *HR* FentaNYL (PF) 100 MCG/2 ML VIAL ONE (08:01)
[2019-11-19] MEDS ORDERED: *HR* Morphine Sulfate/PF 10 MG/10 ML AMPUL ONE (08:01)
[2019-11-19] MEDS ORDERED: EPHEDrine 50 MG/ML VIAL ONE (08:04)
[2019-11-19] MEDS ORDERED: *HR* Phenylephrine 10 MG/ML VIAL ONE (08:05)
[2019-11-19 08:14] LABS: Amphetamine Screen,Urine Negative ng/mL (Cutoff=1000); Barbiturate Screen,Urine Negative ng/mL (Cutoff=200); Benzodiazepines Screen,Urine Negative ng/mL (Cutoff=200); Cannabinoid Screen,Urine Negative ng/mL (Cutoff = 50); Cocaine Screen,Urine Negative ng/mL (Cutoff= 300); Opiate Screen,Urine Negative ng/mL (Cutoff=300); Phencyclidine Screen,Urine Negative ng/mL (Cutoff=25)
[2019-11-19] MEDS ORDERED: Dexamethasone 4 MG/ML VIAL ONE (08:39)
[2019-11-19] MEDS ORDERED: Ondansetron 4 MG/2 ML VIAL ONE (08:39)
[2019-11-19] MEDS ORDERED: Oxytocin 20 units/ LR 1000 mL 20 UNIT/1,000 ML BAG IVC ONE (09:57)
[2019-11-19] MEDS ORDERED: 0.9 % Sodium Chloride 1,000 ML IVC SCH (11:21)
[2019-11-19] MEDS ORDERED: Ondansetron 4 MG/2 ML VIAL IVP PRN (11:21)
[2019-11-19] MEDS ORDERED: Rho Immune Globulin 1,500 UNIT SYRINGE IM ONE (11:21)
[2019-11-19] MEDS ORDERED: Simethicone 80 MG TAB.CHEW PO PRN (11:21)
[2019-11-19] MEDS ORDERED: Oxytocin 20 units/ LR 1000 mL 20 UNIT/1,000 ML BAG IVC SCH (11:21)
[2019-11-19] MEDS ORDERED: Sennosides 8.6 MG TABLET PO PRN (11:21)
[2019-11-19] MEDS: Ibuprofen 600 MG TABLET PO PRN (20:49)
[2019-11-20] MEDS: Ondansetron 4 MG/2 ML VIAL IVP PRN (00:27)
[2019-11-20] MEDS ORDERED: Ringers Solution, Lactated 1,000 ML ONE (04:50)
[2019-11-20] MEDS: Ibuprofen 600 MG TABLET PO PRN ×2 (07:58→16:10)
[2019-11-20] MEDS: Prenatal Vit/FA 1 EACH TABLET PO SCH (07:58)
[2019-11-20 08:10] LABS: Hematocrit 32.6 % (35.3-44.9); Hemoglobin 9.9 g/dL (11.5-15.4); Mean Corpuscular HGB Conc 30.4 g/dL (31.6-35.5); Mean Corpuscular Hemoglobin 25.3 pg (28.0-33.3); Mean Corpuscular Volume 83.2 fL (83.0-100.0); Mean Platelet Volume 9.9 fL (9.4-12.4); Platelet Count 275 K/mcL (140-400); Red Blood Count 3.92 M/mcL (3.82-4.97); Red Cell Distribution Width 23.4 % (11.5-14.5); White Blood Count 11.4 K/mcL (4.3-11.1)
[2019-11-20 08:56] LABS: Eosinophils # 0.2 K/mcL (0.0-0.6); Lymphocytes # 0.7 K/mcL (0.6-4.6); Monocytes # 0.5 K/mcL (0.0-1.3)
[2019-11-20 08:59] LABS: Anisocytosis 2+ (Not Present); Platelet Estimate Normal (Normal); Poikilocytosis 1+ (Not Present)
[2019-11-20] MEDS ORDERED: Prenatal Vit/FA 1 EACH TABLET PO SCH (09:00)
[2019-11-20] MEDS: *HR* OxyCODONE/APAP 5/325 TABLET PO PRN ×3 (10:05→22:49)
[2019-11-20 10:13] LABS: Alanine Aminotransferase 5 Units/L (7-52); Aspartate Amino Transferase 17 Units/L (13-39); BUN/Creatinine Ratio 12 (6-26); Blood Urea Nitrogen 6 mg/dL (6-20); Lactate Dehydrogenase 240 Units/L (140-271); Uric Acid 5.2 mg/dL (2.3-7.6); eGFR For African Americans > 60 (> 60); eGFR For Non-African Americans > 60 (> 60)
[2019-11-21] MEDS: *HR* OxyCODONE/APAP 5/325 TABLET PO PRN (06:48)
[2019-11-21] MEDS: Ondansetron 4 MG/2 ML VIAL IVP PRN (06:49)
[2019-11-21 08:01] VITALS: BP 128/82
[2019-11-21] MEDS: Prenatal Vit/FA 1 EACH TABLET PO SCH (08:48)
[2019-11-21] MEDS: Ibuprofen 600 MG TABLET PO PRN (08:48)
== END 2019-11-21 12:48 | disposition home or self-care (01) | DRG 540 ==
LOC: 1NENULAB 04:51 → 1NENUOBS 12:30
PROVIDERS: ADMIT Student in an Organized Health Care Education/Training Program; ATTEND Student in an Organized Health Care Education/Training Program